=== PATIENT | male | born 1945 | race Caucasian/White ===

== ENCOUNTER 2017-11-22 08:00 | Inpatient (IN) ==
--- NOTE | 2017-11-21 10:05 | Cardiology History & Physical ---
History of Present Illness Chief complaint: fatigue HPI: Ruel is a 72 year old male who is well known to Dr. eBarden with a history of frequent PVCs, CAD and HLD who had a recent holter which showed SR, SB, ST, HR 56-117, occasional PVCs and couplets, one triplet, occasional runs of ventricular bigeminy, occasional PACs with short runs of PAT. He is scheduled for observation admission today, 11/22/17 for antiarrhythmic therapy on Flecainide. Review of Systems - Constitutional Constitutional: Present: fatigue. Absent: chills, fever(s) - EENMT Eyes: Absent: change in vision Balance: Absent: vertigo Mouth/Throat: Absent: sore throat - Cardiovascular Cardiovascular: Present: palpitations. Absent: chest pain, syncope, dyspnea on exertion, orthopnea, heart murmur Vascular: Absent: pedal edema - Respiratory Respiratory: Absent: cough, dyspnea, dyspnea on exertion - Gastrointestinal Gastrointestinal: Absent: abdominal pain, diarrhea, nausea, vomiting - Genitourinary Genitourinary: Absent: dysuria - Integumentary/Breasts Integumentary: Absent: rash - Neurological Neurological: Absent: dizziness - Endocrine Endocrine: Present: palpitations PFSH PVCs Mild CAD Thyroid disease Osteoarthritis Surgical History: cervical discectomy. R TKA. Dilation of esophageal stricture Family History: Father - Leukemia Brother - Cancer, thyroid disease Sister - [place], cause of - Social History Smoking status: Never smoker Substance use type: does not use Alcohol intake frequency: does not drink Household members: spouse Current occupational status: retired Current residence: Apartment/Private Home Medications Home Medications Medication Instructions Recorded Confirmed Type Levothyroxine Sodium 50 mcg PO ACB #0 09/23/15 11/22/17 History Aspirin 1 tab PO DAILY #30 tab 02/16/16 11/22/17 History Allergies Allergy/AdvReac Type Severity Reaction Status Date / Time No Known Allergies Allergy Unverified 11/22/17 08:15 Exam - Constitutional no acute distress, well nourished, cooperative - Routine HEENT Exam Head: Present: normocephalic ENT: Present: mucous membranes moist - Routine Neck Exam Absent: JVD, carotid bruit - Routine Chest/Breast/Axilla Exam Chest wall: Absent: tenderness - Routine Respiratory Exam Present: CTA bilaterally. Absent: rales, wheezes - Routine Cardiovascular Exam Present: murmur (I/), irregular rhythm. Absent: JVD - Routine Abdominal Exam Present: soft, normoactive bowel sounds - Routine Extremities Exam Present: no edema - Routine Skin Exam Present: intact, dry, warm - Routine Neurological Exam Present: alert, oriented X3 - Routine Psychiatric Exam Present: normal affect, normal thought process Results 11/22/17 08:35 11/23/17 06:04 EKG interpretations - EKG EKG results cardiology: sinus rhythm - Dysrhythmias Ventricular dysrhythmias: ventricular premature complexes - Blocks, axis, hypertrophy, ST abn AV and intraventricular conduction: right bundle branch block (fixed/ intermittent, complete/incomplete) Chamber hypertrophy or enlargement: left ventricular hypertrophy or enlargement (LVE) Hospital Course This is a general summary of the patient's hospital course. For more details refer to the complete medical record. Time spent with patient: 25 - 35 minutes Resuscitation Status: Full Code Assessment and Plan - Attestation Attestation Narrative: 11/23/17 12:25 Recommendation After examining the patient I agree with the above assessment. I am involved in the formulation of the patient's plan of care. - Assessment and Plan (1) Ventricular premature depolarization Current visit: No Status: Acute Ruel had a recent holter which showed SR, SB, ST, HR 56-117, occasional PVCs and couplets, one triplet, occasional runs of ventricular bigeminy, occasional PACs with short runs of PAT. He is scheduled for observation admission today for antiarrhythmic therapy on Flecainide (2) Atherosclerotic heart disease of [place] coronary artery without angina pectoris Current visit: No Status: Chronic LAD 30%, Cx minor and RCA patent on cath 02/16/16 (3) Mixed hyperlipidemia Current visit: No Status: Chronic PCP manages
[2017-11-22 08:41] VITALS: BMI 30.7
[2017-11-22] MEDS: FLECAINIDE 100 MG TABLET PO SCH ×2 (10:02→20:40)
[2017-11-23] MEDS: LEVOTHYROXINE 50 MCG TABLET PO SCH (05:48)
[2017-11-23] MEDS: FLECAINIDE 100 MG TABLET PO SCH (09:17)
--- NOTE | 2017-11-23 09:55 | Cardiology Progress Note ---
<Danielle Angulo - Last Filed: 11/23/17 10:02> Subjective Principal diagnosis: PVCs Interval history: Ruel is seen in follow up for frequent PVCs. He is examined in his room with his present, he has increased number of PVCs, many in couplets and Salvos which is an arrhythmia of immediate concern. He denies chest pain or pressure, palpitations, dyspnea, dizziness or lightheadedness. Exam Vital signs: Temperature 97.6 F 11/23/17 07:39 Pulse Rate 58 L 11/23/17 07:39 Respiratory Rate 20 11/23/17 07:39 Blood Pressure 148/78 H 11/23/17 07:39 Pulse Oximetry 95 11/23/17 07:39 - Constitutional no acute distress, well nourished, cooperative - Routine HEENT Exam Head: Present: normocephalic ENT: Present: mucous membranes moist - Routine Neck Exam Absent: JVD, carotid bruit - Routine Chest/Breast/Axilla Exam Chest wall: Absent: tenderness - Routine Respiratory Exam Present: CTA bilaterally. Absent: rales, wheezes - Routine Cardiovascular Exam Present: murmur (I/), irregular rhythm - Routine Abdominal Exam Present: soft, normoactive bowel sounds - Routine Extremities Exam Present: no edema - Routine Skin Exam Present: intact, dry, warm - Routine Neurological Exam Present: alert, oriented X3 - Routine Psychiatric Exam Present: normal affect, normal thought process - Additional findings Additional findings: Aspirin (Asa) 81 mg PO DAILY [facility] Flecainide Acetate (Tambocor) 50 mg PO BID [facility] Last Admin: 11/23/17 09:17 Dose: 50 mg Levothyroxine Sodium (Synthroid) 50 mcg PO ACB [facility] Last Admin: 11/23/17 05:48 Dose: 50 mcg Results 11/22/17 08:35 11/22/17 08:54 Intake and Output 11/22/17 11/23/17 11/23/17 22:59 06:59 14:59 Intake Total 620 / 620 100 / 100 Balance 620 / 620 100 / 100 Intake: Oral 620 / 620 100 / 100 Other: Urine Odor Normal # Voids 1 Weight 191 lb 2.252 oz Patient Weight 11/24/17 06:59 Weight 191 lb 2.252 oz - Imaging and Cardiology EKG results: image reviewed - EKG Interpretation EKG: sinus rhythm (with frequent PVCs, QT/QTc 396/423) Assessment and Plan - Assessment and Plan (1) Ventricular premature depolarization Status: Acute (2) Atherosclerotic heart disease of [place] coronary artery without angina pectoris Status: Chronic (3) Mixed hyperlipidemia Status: Chronic - Assessment and Plan 11/22/17 Ventricular premature depolarization: Ruel had a recent holter which showed SR, SB, ST, HR 56-117, occasional PVCs and couplets, one triplet, occasional runs of ventricular bigeminy, occasional PACs with short runs of PAT. He is scheduled for observation admission today for antiarrhythmic therapy on Flecainide Atherosclerotic heart disease of [place] coronary artery without angina pectoris: LAD 30%, Cx minor and RCA patent on cath 02/16/16 Mixed hyperlipidemia: PCP manages 11/23/17 Ventricular premature depolarization:he has increased number of PVCs, many in couplets and Salvos which is an arrhythmia of immediate concern. - Will change antiarrhythmic therapy to Mexiletine 150mg by mouth TID - Monitor cardiac telemetry - BMP, MAG and EKG in the morning. Hospital Course Summary Disclaimer: The visit summary below is not to be considered part of the above Progress Note. <Paco Bearden - Last Filed: 11/24/17 13:26> Exam Vital signs: Temperature 96.9 F 11/24/17 08:34 Pulse Rate 66 11/24/17 08:45 Respiratory Rate 20 11/24/17 08:34 Blood Pressure 135/66 11/24/17 08:34 Pulse Oximetry 99 11/24/17 08:34 Results 11/22/17 08:35 11/24/17 04:22 Comprehensive Metabolic Panel 11/24/17 Range/Units 04:22 Sodium 140 (134-144) MEQ/L Potassium 4.4 (3.6-5) MEQ/L Chloride 102 (98-107) MEQ/L Carbon Dioxide 29 (22-30) MEQ/L BUN 23.0 H (9-20) MG/DL Creatinine 1.0 (0.8-1.5) MG/DL Glucose 110 (75-110) MG/DL Calcium 9.3 (8.4-10.2) MG/DL Intake and Output 11/23/17 11/24/17 11/24/17 22:59 06:59 14:59 Intake Total 260 / 260 Balance 260 / 260 Intake: Oral 260 / 260 Assessment and Plan - Assessment and Plan (1) Ventricular premature depolarization Status: Acute (2) Atherosclerotic heart disease of [place] coronary artery without angina pectoris Status: Chronic (3) Mixed hyperlipidemia Status: Chronic - Attestation Attestation Narrative: 11/24/17 13:26 Recommendation After examining the patient I agree with the above assessment. I am involved in the formulation of the patient's plan of care. Hospital Course Summary Disclaimer: The visit summary below is not to be considered part of the above Progress Note.
[2017-11-23] MEDS: MEXILETINE 150 MG CAPSULE PO SCH ×3 (10:48→22:10)
[2017-11-23] MEDS: ASPIRIN 81 MG PO SCH (11:03)
[2017-11-24] MEDS: LEVOTHYROXINE 50 MCG TABLET PO SCH (06:06)
[2017-11-24 08:35] VITALS: BP 135/66; RESP 20; TEMP 96.9; O2SAT 99
[2017-11-24] MEDS: MEXILETINE 150 MG CAPSULE PO SCH (08:53)
[2017-11-24] MEDS: ASPIRIN 81 MG PO SCH (08:53)
[2017-11-24] MEDS ORDERED: ENOXAPARIN 40 MG/0.4 ML INJECTION SQ SCH (09:00)
--- NOTE | 2017-11-24 11:38 | Discharge Summary ---
Discharge Information Date of admission: 11/23/17 11:05 Anticipated date of discharge: 11/24/17 Attending Physician: Paco Bearden MD Primary care physician: Joby Howard MD - Discharge Diagnosis (1) Ventricular premature depolarization Status: Acute (2) Atherosclerotic heart disease of [place] coronary artery without angina pectoris Status: Chronic (3) Mixed hyperlipidemia Status: Chronic - Laboratory Labs: 11/22/17 08:35 11/24/17 04:22 History of Present Illness HPI: Ruel is a 72 year old male who is well known to Dr. Bearden with a history of frequent PVCs, CAD and HLD who had a recent holter which showed SR, SB, ST, HR 56-117, occasional PVCs and couplets, one triplet, occasional runs of ventricular bigeminy, occasional PACs with short runs of PAT. He is scheduled for observation admission today, 11/22/17 for antiarrhythmic therapy on Flecainide. Hospital Course This is a general summary of the patient's hospital course. For more details refer to the complete medical record. Hospital course: 11/22/17 Ventricular premature depolarization: Ruel had a recent holter which showed SR, SB, ST, HR 56-117, occasional PVCs and couplets, one triplet, occasional runs of ventricular bigeminy, occasional PACs with short runs of PAT. He is scheduled for observation admission today for antiarrhythmic therapy on Flecainide Atherosclerotic heart disease of [place] coronary artery without angina pectoris: LAD 30%, Cx minor and RCA patent on cath 02/16/16 Mixed hyperlipidemia: PCP manages 11/23/17 Ventricular premature depolarization:he has increased number of PVCs, many in couplets and Salvos which is an arrhythmia of immediate concern. - Will change antiarrhythmic therapy to Mexiletine 150mg by mouth TID - Monitor cardiac telemetry - BMP, MAG and EKG in the morning. Time spent with patient: 25 - 35 minutes Resuscitation Status: Full Code Exam Vital signs: Temperature 96.9 F 11/24/17 08:34 Pulse Rate 55 L 11/24/17 08:34 Respiratory Rate 20 11/24/17 08:34 Blood Pressure 135/66 11/24/17 08:34 Pulse Oximetry 99 11/24/17 08:34 - Constitutional no acute distress, well nourished, cooperative - Routine HEENT Exam Head: Present: normocephalic ENT: Present: mucous membranes moist - Routine Neck Exam Absent: JVD, carotid bruit - Routine Chest/Breast/Axilla Exam Chest wall: Absent: tenderness - Routine Respiratory Exam Present: CTA bilaterally. Absent: rales, wheezes - Routine Cardiovascular Exam Present: no murmur, irregular rhythm. Absent: JVD - Routine Abdominal Exam Present: soft, normoactive bowel sounds - Routine Extremities Exam Present: no edema - Routine Skin Exam Present: intact, dry, warm - Routine Neurological Exam Present: alert, oriented X3 - Routine Psychiatric Exam Present: normal affect, normal thought process Results 11/22/17 08:35 11/24/17 04:22 Comprehensive Metabolic Panel 11/24/17 Range/Units 04:22 Sodium 140 (134-144) MEQ/L Potassium 4.4 (3.6-5) MEQ/L Chloride 102 (98-107) MEQ/L Carbon Dioxide 29 (22-30) MEQ/L BUN 23.0 H (9-20) MG/DL Creatinine 1.0 (0.8-1.5) MG/DL Glucose 110 (75-110) MG/DL Calcium 9.3 (8.4-10.2) MG/DL Intake and Output 11/23/17 11/24/17 11/24/17 22:59 06:59 14:59 Intake Total 260 / 260 Balance 260 / 260 Intake: Oral 260 / 260 Discharge Plan - Med Rec/Dispo Referrals/Follow Up: Ailce ZAVALETA [Other] (PLEASE FOLLOW UP WITH DR ZAVALETA ON MondayDecember AT 1:00PM. PLEASE FILL OUT THE PACKET THAT WILL BE MAILED TO YOU. BRING YOUR FILLED OUT PACKET, EXAMINATION [employer]ICENCE, AND YOUR INSURANCE CARD TO APPOINTMENT. ) Paco Bearden MD [Physician] - 12/14/17 11:15 am No Instructions: Mexiletine (By mouth) Prescriptions: [place]iletine [Mexitil] 150 mg PO TIDWM #90 cap Continue Levothyroxine Sodium 50 mcg PO ACB #0 Aspirin 1 tab PO DAILY #30 tab - Disposition 01 Discharged Home, Self-Care - Dismissal Complete Discharge Instructions are:: Complete
[2017-11-24 12:02] VITALS: PULSE 66
== END 2017-11-24 11:47 | disposition home or self-care (01) | DRG 310 ==
LOC: SRG
PROVIDERS: ADMIT Internal Medicine Cardiovascular Disease; ATTEND Internal Medicine Cardiovascular Disease